=== PATIENT | female | born 1950 | race Two or more races ===

== ENCOUNTER 2016-10-30 19:50 | Emergency (ER) | payer MEDICARE, OTHER ==
[~2016-10-30] VITALS: Ht 162.6 cm; Wt 88.9 kg
--- NOTE | 2016-10-30 19:58 | NUR ---
65 YO TYE BB RA. PT IS ALERT X 3, C/O SOB. PT STATES SHE WAS DC FROM [place] [facility]ER TODAY. EMS ADMIN BREATHING TREATMENT X 2 COMMERCIAL ASSISTANT. NOTED WHEEZING ALL LOBES. PT GOWNED, PLACED ON NEWS LIBRARY DIRECTOR. SKIN WARM AND DRY, RR EVEN AND LABORED. AWAITING ORDERS FROM PROVIDER, WILL CONITNUE TO MONITOR
[2016-10-30] MEDS ORDERED: ALBUTEROL FS 2.5 MG/0.5 ML VIAL.NEB NEB ONE (20:30)
[2016-10-30] MEDS ORDERED: IPRATROPIUM NEB FS 0.5 MG/2.5 ML AMPUL.NEB NEB ONE (20:30)
--- NOTE | 2016-10-30 20:30 | NUR ---
CALLED NURSING STEM THRESHING MACHINE OPERATOR FOR TELE BED
--- NOTE | 2016-10-30 20:45 | NUR ---
RT AT BED SIDE FOR BREATHING TREATMENT
[2016-10-30] MEDS ORDERED: ALBUTEROL FS 2.5 MG/0.5 ML VIAL.NEB ONE (20:46)
[2016-10-30] MEDS ORDERED: IPRATROPIUM NEB FS 0.5 MG/2.5 ML AMPUL.NEB ONE (20:46)
[2016-10-30 20:49] LABS: BASOPHILS # (AUTO) 0.1 /CMM (0.0-0.2); BASOPHILS % (AUTO) 0.6 % (0.0-2.0); EOSINOPHILS # (AUTO) 0.6 /CMM (0.0-0.7); EOSINOPHILS % (AUTO) 4.6 % (0.0-6.0); HEMATOCRIT 32 % (33-45); HEMOGLOBIN 10.6 g/dL (11.5-14.8); LYMPHOCYTES # (AUTO) 1.6 /CMM (0.8-4.8); LYMPHOCYTES % (AUTO) 13.2 % (20.0-44.0); MEAN CORPUSCULAR HEMOGLOBIN 28 PG (26.0-33.0); MEAN CORPUSCULAR HGB CONC 33 g/dl (31.0-36.0); MEAN CORPUSCULAR VOLUME 86 fL (82-100); MONOCYTES # (AUTO) 0.6 /CMM (0.1-1.30); NEUTROPHILS # (AUTO) 9.2 /CMM (1.8-8.9); NEUTROPHILS % (AUTO) 76.6 % (43.0-81.0); PLATELET COUNT (AUTO) 324 /CMM (150-450); RDW COEFFICIENT OF VARIATION 12.9 (11.5-15.0); RED BLOOD CELL COUNT(AUTO) 3.77 MIL/uL (4.0-5.2); WHITE BLOOD COUNT (AUTO) 12.1 K/uL (4.3-11.0)
[2016-10-30 21:06] LABS: CALCIUM, SERUM 8.8 mg/dL (8.5-10.1); CREATININE 1.2 mg/dL (0.6-1.3); INR 0.99 (0.87-1.13); POTASSIUM 4.3 mmol/L (3.5-5.1); PROTHROMBIN TIME 10.3 SECS (9.5-12.7)
--- NOTE | 2016-10-30 21:10 | NUR ---
TELE [phone]
[2016-10-30 21:17] LABS: TROPONIN I 0.512 ng/mL (0.00-0.056)
[2016-10-30 21:18] LABS: ALBUMIN 3.3 g/dL (3.4-5.0); BILIRUBIN,DIRECT 0.1 mg/dL (0.0-0.2); BILIRUBIN,TOTAL 0.3 mg/dL (0.2-1.0); TOTAL PROTEIN, SERUM 8.2 g/dL (6.4-8.2)
[2016-10-30] MEDS ORDERED: ASPIRIN 325 MG TABLET ONE (21:29)
[2016-10-30] MEDS ORDERED: FUROSEMIDE 40 MG/4 ML VIAL ONE (21:29)
[2016-10-30] MEDS ORDERED: ASPIRIN 325 MG TABLET PO ONE (21:30)
[2016-10-30] MEDS ORDERED: NITROGLYCERIN PACKET 1 GM PACKET TOP ONE (21:30)
[2016-10-30] MEDS ORDERED: NITROGLYCERIN PACKET 1 GM PACKET ONE (21:30)
[2016-10-30] MEDS ORDERED: FUROSEMIDE 40 MG/4 ML VIAL IV ONE ×2 (21:30)
--- NOTE | 2016-10-30 21:31 | NUR ---
FAXED PATIENT'S FACESHEET TO [facility] [phone]
--- NOTE | 2016-10-30 21:31 | NUR ---
PAGED DR IRVIN FOR PANEL ADMISSION
--- NOTE | 2016-10-30 21:35 | NUR ---
SPOKE WITH WARP HAULER LUISANA AT [facility] AND EXPLAINED PT'S CASE. LUISANA STATED SHE WILL RETURN CALL AFTER MD AND BED CONTROL SPEAK WITH HER. HOUSE SUP#: BED CONTROL#: BED CONTROL FAX#: Addendum: 10/30/16 at 2318 by [facility] BED CONTROL#:
[2016-10-30 21:38] LABS: ABG BASE EXCESS 3.2 mmol/L; ABG OXYGEN SATURATION 92.9 % (92.0-98.5); ABG PCO2 43.5 mmHg (35.0-45.0); ABG PH 7.426 (7.350-7.450); ABG PO2 69.2 mmHg (75.0-100.0); AaDO2 108.1 mmHg; COHb 0.4 % (0.5-1.5); MetHb 0.5 % (0.0-1.5); O2Hb 92.1 % (94.0-97.0); SITE, ABG Left Brachial; VENT MODE, BG N/C 3L
--- NOTE | 2016-10-30 22:44 | NUR ---
SPOKE WITH SONIA AT [facility] BED CONTROL. EXPLAINED TO SONIA VARGAS NEEDS TO SPEAK WITH THE PHYSICIAN THAT DC'D THE PT FROM [facility]'S ROOM [address] ONE H[address] EDGING CATCHER. WAS INFORMED SONIA WILL SPEAK WITH THE NURSING STAFF TO FIND OUT WHICH PHYSICIAN DC'D THE PT, WHOM EXPERIENCED CP AND DYSPNEA JUST AFTER DC FROM THE HOSPITAL.
[2016-10-30] MEDS ORDERED: ENOXAPARIN SODIUM 80 MG/0.8 ML DISP.SYRIN SQ ONE (22:51)
--- NOTE | 2016-10-30 23:07 | NUR ---
CALLED ANSWERING SERVICE FOR DR BARRETT, MANAGER OF INVESTIGATIONS PHYSICAN FOR DR DOW.
--- NOTE | 2016-10-30 23:08 | NUR ---
DR BARRETT CALLED BACK, TRANSFERRED CALL TO DR DAMON
--- NOTE | 2016-10-30 23:28 | NUR ---
MEDICATED PT ORDERED
--- NOTE | 2016-10-30 23:28 | NUR ---
CALLED [facility] BED CONTROL, SPOKE WITH SONIA AND INFORMED HER DR. BARRETT ACCEPTED THE PATIENT AND WANTS A BED. SONIA STATED SHE WILL NOT GIVE US A BED UNTIL OUR ADMITTING DEPARTMENT OBTAINS AUTHORAZATION FROM THE PATIENT'S INSURANCE TO ADMIT TO [facility]. SONIA DECLINED TO ASSIST WITH INSURANCE VERIFICATION AND AUTHORAZATION OF THE PATIENT THE WAS DISCHARGED FROM [facility] APPROXIMATELY 4 HOURS AGO. AT THIS TIME, PATIENT HAS BEEN IN [facility] ER FOR 3 HOURS AND 42 MINUTES.
--- NOTE | 2016-10-30 23:29 | NUR ---
MD VARGAS LEFT PRIOR TO GIVING EXACT MG TO BE GIVEN FOR LOVENOX. PER MD DAMON (NIGHT MD) PT SHOULD GET 80MG LOVENOX
--- NOTE | 2016-10-30 23:39 | NUR ---
RECEIVED CALL FROM JUMANA Tavera AT [facility] AND RECEIVED VERBAL AUTHORIZATION. CALLED BED CONTROL AT [facility] AND INFORMED SONIA I COMPLETED HER INSURANCE VERIFICATION AND AUTHORIZATION FOR HER. SONIA REFUSED VERBAL AUTHORIZATION AND DEMANDED I CALL JUMANA TO OBTAIN AN AUTHORIZATION NUMBER. I INFORMED SONIA JUMANA WAS EXPECTING A CALL FROM HER; HOWEVER, SONIA STILL DECLINED TO ASSIST WITH AUTHORIZATION OF THIS PATIENT WHOM WAS JUST DISCHARGED FROM [facility]. SONIA ACCUSED ME OF YELLING AT HER AND DEMANDED I CALL JUMANA AND THREATENED TO HANG UP ON ME. I CALMLY REPLIED, "YES, I'LL CALL JUMANA." [facility]#:
--- NOTE | 2016-10-30 23:53 | NUR ---
CALLED JUMANA Tavera AT [facility]. I EXPLAINED THE SITUATION TO JUMANA AND RECEIVED AN AUTHORIZATION NUMBER. AUTHORIZATION #: [id number]
--- NOTE | 2016-10-30 23:59 | NUR ---
CALLED SONIA WITH BED CONTROL AT [facility]. SHE ASKED WHAT I WAS CALLING ABOUT. I TOLD HER I HAD THE AUTHORIZATION NUMBER FOR THE PATIENT. SHE THEN PLACED ME ON HOLD FOR SEVERAL MINUTES. AFTER THE HOLD, I PROVIDED HER WITH THE AUTHORIZATION NUMBER PROVIDED BY JUMANA Tavera AT [facility]. SHE TOLD ME SHE WILL CALL DR BARRETT FOR ORDERS AND GIVE US A CALL BACK.
--- NOTE | 2016-10-31 01:00 | NUR ---
CALLED LUISANA NURSING ADVERTISING DISPATCH CLERKS SUPERVISOR FOR AN UPDATE REGARDING TRANSFER. SHE INFORMED ME THAT THEY HAVE LEFT MESSAGES FOR DR BARRETT AND THEY ARE WAITING TO HEAR BACK FROM HIM REGARDING ORDERS FOR THE PATIENT
--- NOTE | 2016-10-31 01:01 | NUR ---
TRANSFERRED CALL TO CLINICAL ENGINEERING MANAGER ANDREW FOR FURTHER INFORMATION
[2016-10-31 01:30] VITALS: BP 141/79
--- NOTE | 2016-10-31 01:32 | NUR ---
LEFT MESSAGE WITH DR BARRETT'S ANSWERING SERVICE : [phone]; FOR A CALL BACK TO NURSING SUPERVISER AT [facility]
--- NOTE | 2016-10-31 01:40 | NUR ---
PT ACCEPTED AT [facility] 3N 2315. NUMBER TO CALL REPORT [id number]. TELEMETRY. WE ARE RESPONSIBLE FOR ARRANGING ALS TRANSPORT.
--- NOTE | 2016-10-31 01:40 | NUR ---
Patient is resting in er bed, nad noted, skin warm and dry. patient denies any CP/SOB/N/V or any other medical complaints. 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
--- NOTE | 2016-10-31 01:46 | NUR ---
CALLED [facility] FOR ALS TRANSPORT TO [facility]. ETA 45 MINUTES.
--- NOTE | 2016-10-31 01:49 | NUR ---
naeem sanchez took report for abad
--- NOTE | 2016-10-31 02:52 | NUR ---
report given to emt for transport
--- NOTE | 2016-10-31 03:05 | NUR ---
pt transported to [place] by ACLS unit
== END 2016-10-31 03:08 | disposition short-term general hospital (02) ==
LOC: ER 19:51
DX: I11.0 Hypertensive heart disease with heart failure (principal); I50.9 Heart failure, unspecified; I21.4 Non-ST elevation (NSTEMI) myocardial infarction; E11.9 Type 2 diabetes mellitus without complications; D64.9 Anemia, unspecified; I70.0 Atherosclerosis of aorta; J45.909 Unspecified asthma, uncomplicated; Z86.73 Personal history of transient ischemic attack (TIA), and cerebral infarction without residual deficits
CPT/HCPCS: 36415; 36600 ×2; 71010; 80048; 80076; 82803; 83880; 84484; 85025; 85730; 87081; 93005; 94640; 96372; 96374; 99291; A4606 ×2; J1650; J1940; Z7610